=== PATIENT | female | born 1960 | race Caucasian/White ===

== ENCOUNTER 2019-02-13 20:02 | Inpatient (IN) | payer MEDICARE, OTHER ==
--- NOTE | 2019-02-13 20:14 | ED PDOC ---
Psych Transfer Clearance - Clearance Statement Clearance Statement: Vital signs, lab results and transfer papers reviewed on previous shift by Dr Zarco. Patient clinically stable for psychiatric admission.
[2019-02-13 20:15] VITALS: O2SAT 100
[2019-02-13] MEDS ORDERED: Magnesium Hydroxide Susp 30 ml UD PO PRN (21:54)
[2019-02-13] MEDS ORDERED: Alum-Mag Hydrox-Simethicone Susp (30 mL) PO PRN (21:54)
[2019-02-13] MEDS ORDERED: Bismuth Subsalicylate 262 mg/15 ml Sus (240 ml) PO PRN (21:54)
--- NOTE | 2019-02-13 22:40 | PCM.BM ---
<Danilo Bates - Last Filed: 02/13/19 22:38> Treatment Plan Problems - Problems identified on initial assessmt Command/Auditory Hallucinations Date Initiated: 02/13/19 Time Initiated: 22:38 Assessment reference: NA Status: Active Priority: 1 Depression Date Initiated: 02/13/19 Time Initiated: 22:39 Assessment reference: NA Priority: 2 Suicidal Ideation Date Initiated: 02/13/19 Time Initiated: 22:39 Assessment reference: NA Status: Active Priority: 3 Visual Hallucinations Date Initiated: 02/13/19 Time Initiated: 22:39 Assessment reference: NA Status: Active Priority: 4 Treatment assets and liabiliti Patient Assests: cooperative, ADL independent, good support system, negotiates basic needs, cognitively intact Patient Liabilities: medical problems, other (Hallucinations) - Milieu Protocol Maintain good personal hygiene: daily Encourage regular showers, daily Remind patient to perform daily oral care, daily Assist patient to perform ADL's Conduct patient checks and document Observation sheet: Q15 minutes Maintain personal safety: every shift Educate patient to report safety concerns to staff, every shift Monitor environment for contraband/sharps Medication safety: Monitor for expected outcome, potential side effects: every shift, Assess barriers to learning: every shift, Assess readiness for medication education: every shift <Marcella Tiwari - Last Filed: 02/14/19 10:23> - Diagnosis (1) Schizoaffective disorder Status: Acute Interventions: Medication management, Individual and group therapy, Psychoeducation 02/14/19 10:24 <Alberto Fernandez - Last Filed: 02/16/19 09:55> Family Contact Family involvement: Family/SO is involved Family contact: Patient declines to allow family contact at present Family contact name: Pt refused. - Goals for Treatment Patient goals for treatment: Pt denied goals for treatment at this time as she is denying all acute psych symptoms (i.e depression, anxiety, SI/HI and AVT hallucinations). Pt reported that she is "feeling good." Pt is discharged focused and is [facility] to [facility]. Discharge/Continuing Care - Education Needs Education Needs: Patient Medication, Patient Diagnosis/Disease Process, Patient Coping Skills, Patient Placement options, Patient Community resources, Patient Aftercare Safety Plan - Discharge Discharge Criteria: Tolerates medication w/o severe side effects, Free of Suicidal thoughts, Free of paranoid thoughts, Free of agitation, Normal sleep pattern, Ability to care for self, Reduction of target symptoms Discharge to:: Alf - Treatment Team Participation Patient/Family/SO Statement: 02/16/19 09:51 Pt seen in treatment team on 02/15/19. Pt denied SI/HI, AVT hallucinatins, depression, anxiety and delusions. Pt able to contract for safety and is able to verbalize future plans and goals for self. Pt's affect and mood is bright and cheerful and she is focused on discharge and returning to the [facility]. Pt is oriented X4. Discussed with Family/SO: No Was Patient/Family/SO present at Treatment Team Meeting: Yes
[2019-02-14 00:58] LABS: SQUAMOUS EPITHIAL 3 /hpf (0-5); URINE BILIRUBIN NEGATIVE (NEGATIVE); URINE BLOOD NEGATIVE (NEGATIVE); URINE CLARITY SLIGHTY-CLOUDY (Clear); URINE COLOR YELLOW (YELLOW); URINE GLUCOSE (UA) NEG (NEGATIVE); URINE LEUKOCYTE ESTERASE TRACE Leu/uL (Negative); URINE PROTEIN NEGATIVE (NEGATIVE); URINE UROBILINOGEN 0.2-1.0 mg/dL (0.2-1.0)
[2019-02-14] MEDS ORDERED: Levothyroxine 50 MCG TAB PO SCH (06:30)
[2019-02-14 06:33] VITALS: RESP 18
[2019-02-14 06:51] LABS: ALB/GLOB RATIO 1.1 (1.0-2.1); ALBUMIN 3.2 g/dL (3.5-5.0); ALT/SGPT 19 U/L (9-52); AST/SGOT 23 U/L (14-36); BLOOD UREA NITROGEN 21 mg/dl (7-17); CALCIUM 8.3 mg/dL (8.4-10.2); GFR NON-AFRICAN AMERICAN > 60; HDL CHOLESTEROL 41 MG/DL (30-70)
[2019-02-14 06:52] LABS: WHITE BLOOD COUNT 6.6 K/uL (4.8-10.8)
[2019-02-14 06:53] LABS: MEAN CELL VOLUME 93.6 fl (81.0-99.0); MEAN CORPUSCULAR HEMOGLOBIN 31.2 pg (27.0-31.0); MEAN CORPUSCULAR HGB CONC 33.3 g/dL (33.0-37.0); RBC 4.49 Mil/uL (3.80-5.20); RED CELL DISTRIBUTION WIDTH 13.8 % (11.5-14.5)
[2019-02-14 07:02] LABS: LDL CHOLESTEROL 62 mg/dL (0-129)
[2019-02-14 07:21] LABS: FERRITIN 59.9 ng/Ml (11.1-264.0)
[2019-02-14] MEDS ORDERED: E ESTRADIOL E ESTRAD PO SCH (09:00)
[2019-02-14] MEDS ORDERED: NORGEST PO SCH (09:00)
[2019-02-14] MEDS ORDERED: [UNRECOGNIZED DRUG - OTHER] PO SCH (09:00)
[2019-02-14] MEDS ORDERED: Patient's Own Med (Multivitamin [Daily Vite] 1 TAB) PO SCH (09:00)
[2019-02-14] MEDS: Cholecalciferol 1,000 INTLU TAB PO SCH (09:10)
[2019-02-14] MEDS: Multivitamin With Minerals Tab PO SCH (09:11)
[2019-02-14] MEDS: Pantoprazole 20 mg EC Tab PO SCH (09:11)
--- NOTE | 2019-02-14 10:30 | PCM.PSYCH ---
Initial Psychiatric Evaluation - Initial Psychiatric Evaluation Type of Admission: Voluntary Legal Status: Capacity Chief Complaint (in patient's own words): Suicidal ideation Patient's Reaction to Hospitalization: HPI: 58 yo female w/ h/o schizoaffective disorder, intellectual disability, presents w/ worsening depression, worsening CAH telling her to stab herself, jump out of a window or run away from her residential. She continues to have suicidal ideation and is not able to contract for safety at this time. She reports sleep disturbances. PMHx: GERD, HLD, Obesity, Asthma, Hypothyroidism, Seizure Disorder, Sleep Apnea, Vitamin D deficiency, Constipation, Allergic rhinitis, Diverticulosis, HTN PSurgHx: Hernia repair, cholecystecomy, gastric bypass, tendon repair, appendectomy, tonsillectomy and adenoidectomy, ankle surgery, bilateral knee replacements SHx: Resident at residential, no drugs/etoh/cig use Current Medications: Active Medications Generic Name Dose Route Start Last Admin Trade Name Freq PRN Reason Stop Dose Admin Acetaminophen 650 mg 02/13/19 21:54 Tylenol 325mg Tab PO Q4 PRN Pain, moderate (4-7) Al Hydrox/Mg Hydrox/Simethicone 30 ml 02/13/19 21:54 Maalox Plus 30 Ml PO Q4 PRN Dyspepsia Aspirin 81 mg 02/14/19 09:00 02/14/19 09:10 Aspirin Chewable PO 81 mg DAILY ELAINE Administration Cholecalciferol 2,000 intlu 02/14/19 09:00 02/14/19 09:10 Vitamin D PO 2,000 intlu DAILY ELAINE Administration Home Med 1 tab 02/14/19 09:00 L-Norgest/E.Estradiol-E.Estrad [Camrese 0.15-0.03-0.01 Mg Tab] PO DAILY ELAINE Levothyroxine Sodium 50 mcg 02/14/19 06:30 02/14/19 09:10 Synthroid PO 50 mcg DAILY@0630 ELAINE Administration Lorazepam 0.5 mg 02/13/19 21:54 02/13/19 22:13 Ativan PO 02/27/19 21:55 0.5 mg HS PRN Administration Insomnia Lorazepam 0.5 mg 02/13/19 21:54 Ativan PO 02/27/19 21:55 Q6 PRN Anixety/Agitation Magnesium Hydroxide 30 ml 02/13/19 21:54 Milk Of Magnesia PO HS PRN Constipation Montelukast Sodium 10 mg 02/14/19 09:00 02/14/19 09:10 Singulair PO 10 mg DAILY ELAINE Administration Multivitamins/Minerals 1 tab 02/14/19 09:00 02/14/19 09:11 Therapeutic-M Tab PO 1 tab DAILY ELAINE Administration Oxybutynin Chloride 10 mg 02/14/19 09:00 02/14/19 09:11 Ditropan Tab PO 10 mg DAILY ELAINE Administration Pantoprazole Sodium 20 mg 02/14/19 09:00 02/14/19 09:11 Protonix Ec Tab PO 20 mg DAILY ELAINE Administration Past Psychiatric History - Past Psychiatric History Pertinent Medical Hx (Current Medical&Sleep Prob, Allergies): Allergies Allergy/AdvReac Type Severity Reaction Status Date / Time amitriptyline Allergy RASH Verified 02/13/19 23:22 carbamazepine [From Tegretol] Allergy RASH Verified 02/13/19 23:22 cefaclor [From Ceclor] Allergy RASH Verified 02/13/19 23:22 cephalexin [From Keflex] Allergy RASH Verified 02/13/19 20:07 Cephalosporins Allergy RASH Verified 02/13/19 20:07 chlorpromazine Allergy RASH Verified 02/13/19 23:22 erythromycin base Allergy RASH Verified 02/13/19 23:22 [From Erythrocin] fenofibrate Allergy RASH Verified 02/13/19 20:07 fluoxetine [From Prozac] Allergy RASH Verified 02/13/19 23:22 imipramine Allergy RASH Verified 02/13/19 23:22 levetiracetam [From Keppra] Allergy RASH Verified 02/13/19 23:22 levofloxacin [From Levaquin] Allergy RASH Verified 02/13/19 23:22 Macrolide Antibiotics Allergy RASH Verified 02/13/19 20:07 maprotiline [From Ludiomil] Allergy RASH Verified 02/13/19 23:22 NSAIDS (Non-Steroidal Allergy RASH Verified 02/13/19 23:22 Anti-Inflamma omega-3 acid ethyl esters Allergy RASH Verified 02/13/19 23:22 perphenazine Allergy RASH Verified 02/13/19 23:22 Phenothiazines Allergy RASH Verified 02/13/19 20:07 phenytoin Allergy RASH Verified 02/13/19 23:22 prochlorperazine Allergy RASH Verified 02/13/19 23:22 quetiapine [From Seroquel] Allergy RASH Verified 02/13/19 23:22 Sulfa (Sulfonamide Allergy RASH Verified 02/13/19 20:07 Antibiotics) trazodone Allergy RASH Verified 02/13/19 23:22 trifluoperazine Allergy RASH Verified 02/13/19 23:22 Aspirin [Aspirin Chewable] 81 mg PO DAILY 02/13/19 Benztropine [Benztropine Mesylate] 1 mg PO DAILY 02/13/19 Calcium Carbonate/Vitamin D3 [Calcium 500-Vit D3 400 Tablet] DAILY 02/13/19 Cholecalciferol (Vitamin D3) [Vitamin D3] 2,000 unit PO DAILY 02/13/19 Clonazepam [Klonopin] 0.5 mg PO BID 02/13/19 Clonazepam [Klonopin] 1 mg PO DAILY 02/13/19 Divalproex [Depakote ER] 1,000 mg PO BID 02/13/19 Escitalopram [Lexapro] 20 mg PO DAILY 02/13/19 Levothyroxine [Synthroid] 50 mcg PO DAILY 02/13/19 Montelukast Sodium [Singulair] 10 mg PO DAILY 02/13/19 Multivitamin [Daily Bell] 1 tab PO DAILY 02/13/19 Nitrofurantoin Macrocrystal [Nitrofurantoin] 50 mg PO DAILY 02/13/19 Olanzapine [Olanzapine Odt] 10 mg PO BID 02/13/19 Oxybutynin Chloride [Oxybutynin Chloride ER] 10 mg PO DAILY 02/13/19 Pantoprazole Sodium [Protonix] 20 mg PO DAILY 02/13/19 Propylene Glycol/Peg 400/Pf [Systane 0.3-0.4% Eye Drop] 1 drop OU BID 02/13/19 Thiamine Mononitrate [Vitamin B-1] 100 mg PO HS 02/13/19 l-Norgest/E.estradiol-E.estrad [Camrese] 1 tab PO DAILY 02/13/19 traZODone [Desyrel] 150 mg PO HS 02/13/19 Review of Systems - Psychiatric Psychiatric: As Per HPI, Abnormal Sleep Pattern, Anhedonia, Anxiety, Auditory Hallucinations, Change in Appetite, Depression, Difficulty Concentrating, Hallucinations, Hopelessness, Irritability, Suicidal Ideation Mental Status Examination - Personal Presentation Personal Presentation: Looks older than stated age - Affect Affect: Constricted, Depressed - Motor Activity Motor Activity: Calm - Reliability in Providing Information Reliability in Providing Information: Fair - Speech Speech: Coherent - Mood Mood: Depressed, Anxious - Formal Thought Process Formal Thought Process: Hallucinations - Hallucinations/Delusions Hallucinations: Auditory - Obsessions/Compulsions Obsessions: No Compulsions: No - Cognitive Functions Orientation: Person, Place, Situation, Time Sensorium: Alert Estimate of Intelligence: Below average Judgement: Intact, as evidence by: Insight regarding need for hospitalization Memory: Recent intact, as evidence by: Ability to recall events of the day - Risk Risk: Suicidal, Diminished functioning - Strength & Assets Inventory Strength & Assets Inventory: Cooperative DSM 5 DX - DSM 5 DSM 5 Diagnosis: Schizoaffective Disorder; Intellectual Disability - Recommended/Plan of Treatment Treatment Recommendations and Plan of Treatment: Schizoaffective Disorder; Intellectual Disability -Admit to psychiatry unit -Medicine consult -1:1 for safety -Individual and group therapy -Psychoeducation -Continue Zyprexa -Increase Trazodone -Depakote for seizure disorder -Continue Klonopin -Continue Lexapro -Continue Cogentin -Disposition planning Projected ELOS: 5-10 days Discharge Plan and Discharge Criteria: Discharge when patient is psychiatrically stable - Smoking Cessation Smoking Cessation Initiated: No Reason for not providing: Not indicated
[2019-02-14] MEDS: Divalproex 500 mg DR(BID formulation) PO SCH ×2 (12:14→18:01)
[2019-02-14] MEDS: Calcium-Vit D 500 mg-200 Units Tab UD PO SCH (12:15)
[2019-02-14 12:19] LABS: FOLATE > 20.0 ng/mL
[2019-02-14] MEDS ORDERED: Divalproex 500 mg ER (ONCE DAILY formulation) PO SCH (13:00)
--- NOTE | 2019-02-14 14:05 | CP.PCM.CON ---
History of Present Illness - History of Present Illness History of Present Illness: Neurology Consultation Note: Consult requested by Dr. Tiwari Mrs. Rodriguez is a 58-year-old woman with a past medical history of GERD, HLD, Obesity, Asthma, Hypothyroidism, Seizure Disorder (on Depakote 1000 mg TID), Sleep Apnea, Vitamin D deficiency, Constipation, Allergic rhinitis, Diverticulosis, HTN, who is currently admitted for suicidal ideation. Neurology was consulted for adjustment of seizure medications as needed. Review of Systems - Review of Systems Systems not reviewed;Unavailable: Altered Mental Status Past Patient History - CARDIAC Hx Hypercholesterolemia: Yes Hx Hypertension: Yes - PULMONARY Hx Asthma: Yes - NEUROLOGICAL Hx Dizziness: Yes Hx Seizures: Yes - ENDOCRINE/METABOLIC Hx Hypothyroidism: Yes - MUSCULOSKELETAL/RHEUMATOLOGICAL Hx Arthritis: Yes Hx Falls: Yes - GASTROINTESTINAL Hx Bowel Surgery: Yes Hx Constipation: Yes Hx Diverticulitis: Yes Hx Gall Bladder Disease: Yes - PSYCHIATRIC Hx Anxiety: Yes Hx Depression: Yes Hx Schizophrenia: Yes Hx Substance Use: No - SURGICAL HISTORY Hx Surgeries: Yes Hx Appendectomy: Yes Hx Joint Replacement: Yes Hx Musculoskeletal Surgery: Yes Hx Tonsillectomy: Yes - ANESTHESIA Hx Anesthesia: Yes Meds Allergies/Adverse Reactions: Allergies Allergy/AdvReac Type Severity Reaction Status Date / Time amitriptyline Allergy RASH Verified 02/13/19 23:22 carbamazepine [From Tegretol] Allergy RASH Verified 02/13/19 23:22 cefaclor [From Ceclor] Allergy RASH Verified 02/13/19 23:22 cephalexin [From Keflex] Allergy RASH Verified 02/13/19 20:07 Cephalosporins Allergy RASH Verified 02/13/19 20:07 chlorpromazine Allergy RASH Verified 02/13/19 23:22 erythromycin base Allergy RASH Verified 02/13/19 23:22 [From Erythrocin] fenofibrate Allergy RASH Verified 02/13/19 20:07 fluoxetine [From Prozac] Allergy RASH Verified 02/13/19 23:22 imipramine Allergy RASH Verified 02/13/19 23:22 levetiracetam [From Keppra] Allergy RASH Verified 02/13/19 23:22 levofloxacin [From Levaquin] Allergy RASH Verified 02/13/19 23:22 Macrolide Antibiotics Allergy RASH Verified 02/13/19 20:07 maprotiline [From Ludiomil] Allergy RASH Verified 02/13/19 23:22 NSAIDS (Non-Steroidal Allergy RASH Verified 02/13/19 23:22 Anti-Inflamma omega-3 acid ethyl esters Allergy RASH Verified 02/13/19 23:22 perphenazine Allergy RASH Verified 02/13/19 23:22 Phenothiazines Allergy RASH Verified 02/13/19 20:07 phenytoin Allergy RASH Verified 02/13/19 23:22 prochlorperazine Allergy RASH Verified 02/13/19 23:22 quetiapine [From Seroquel] Allergy RASH Verified 02/13/19 23:22 Sulfa (Sulfonamide Allergy RASH Verified 02/13/19 20:07 Antibiotics) trazodone Allergy RASH Verified 02/13/19 23:22 trifluoperazine Allergy RASH Verified 02/13/19 23:22 - Medications Medications: Current Medications Acetaminophen (Tylenol 325mg Tab) 650 mg PO Q4 PRN PRN Reason: Pain, moderate (4-7) Al Hydrox/Mg Hydrox/Simethicone (Maalox Plus 30 Ml) 30 ml PO Q4 PRN PRN Reason: Dyspepsia Aspirin (Aspirin Chewable) 81 mg PO DAILY [facility] [place] Last Admin: 02/14/19 09:10 Dose: 81 mg Benztropine Mesylate (Cogentin) 1 mg PO HS [facility] [place] Calcium/Vitamin D (Oyster Shell Calcium/Vitamin D 500 Mg-200 Iu) 1 tab PO DAILY [facility] [place] Last Admin: 02/14/19 12:15 Dose: 1 tab Cholecalciferol (Vitamin D) 2,000 intlu PO DAILY [facility] [place] Last Admin: 02/14/19 09:10 Dose: 2,000 intlu Clonazepam (Klonopin) 0.5 mg PO BID [facility] [place] Last Admin: 02/14/19 12:13 Dose: 0.5 mg Clonazepam (Klonopin) 1 mg PO HS [facility] [place] Divalproex Sodium (Depakote Dr(*Bid*)) 1,000 mg PO BID [facility] [place] Last Admin: 02/14/19 12:14 Dose: 1,000 mg Escitalopram Oxalate (Lexapro) 20 mg PO DAILY [facility] [place] Last Admin: 02/14/19 12:14 Dose: 20 mg Home Med (L-Norgest/E.Estradiol-E.Estrad [Camrese 0.15-0.03-0.01 Mg Tab]) 1 tab PO DAILY [facility] [place] Levothyroxine Sodium (Synthroid) 50 mcg PO DAILY@0630 [facility] [place] Last Admin: 02/14/19 09:10 Dose: 50 mcg Lorazepam (Ativan) 0.5 mg PO HS PRN PRN Reason: Insomnia Stop: 02/27/19 21:55 Last Admin: 02/13/19 22:13 Dose: 0.5 mg Lorazepam (Ativan) 0.5 mg PO Q6 PRN PRN Reason: Anixety/Agitation Stop: 02/27/19 21:55 Magnesium Hydroxide (Milk Of Magnesia) 30 ml PO HS PRN PRN Reason: Constipation Montelukast Sodium (Singulair) 10 mg PO DAILY [facility] [place] Last Admin: 02/14/19 09:10 Dose: 10 mg Multivitamins/Minerals (Therapeutic-M Tab) 1 tab PO DAILY [facility] [place] Last Admin: 02/14/19 09:11 Dose: 1 tab Olanzapine (Zyprexa) 20 mg PO [facility] Oxybutynin Chloride (Ditropan Tab) 10 mg PO DAILY [facility] [place] Last Admin: 02/14/19 09:11 Dose: 10 mg Pantoprazole Sodium (Protonix Ec Tab) 20 mg PO DAILY [facility] [place] Last Admin: 02/14/19 09:11 Dose: 20 mg Thiamine HCl (Vitamin B1 Tab) 100 mg PO DAILY [facility] [place] Last Admin: 02/14/19 12:14 Dose: 100 mg Trazodone HCl (Desyrel) 200 mg PO [facility] Physical Exam - Constitutional Appears: Well - Head Exam Head Exam: ATRAUMATIC, NORMAL INSPECTION, NORMOCEPHALIC - Eye Exam Eye Exam: EOMI, Normal appearance, PERRL Pupil Exam: NORMAL ACCOMODATION, PERRL - ENT Exam ENT Exam: Mucous Membranes Moist, Normal Exam - Neck Exam Neck exam: Positive for: Normal Inspection - Respiratory Exam Respiratory Exam: Clear to Auscultation Bilateral, NORMAL BREATHING PATTERN - Cardiovascular Exam Cardiovascular Exam: REGULAR RHYTHM, +S1, +S2 - GI/Abdominal Exam GI & Abdominal Exam: Normal Bowel Sounds, Soft. absent: Tenderness - Extremities Exam Extremities exam: Positive for: normal inspection - Back Exam Back exam: NORMAL INSPECTION - Neurological Exam Neurological exam: Alert, CN II-XII Intact, Normal Gait, Oriented x3, Reflexes Normal Additional comments: no nystagmus, no ataxia noted, she complains of having diplopia - Psychiatric Exam Psychiatric exam: Depressed, Flat Affect - Skin Skin Exam: Dry, Intact, Normal Color, Warm Results - Vital Signs Recent Vital Signs: Last Vital Signs Temp 98.6 F 02/14/19 06:00 Pulse 80 02/14/19 06:00 Resp 18 02/14/19 06:00 BP 144/85 02/14/19 12:13 Pulse Ox 100 02/13/19 20:08 - Labs Result Diagrams: 02/14/19 05:50 02/14/19 05:50 Labs: Laboratory Results - last 24 hr 02/14/19 02/14/19 02/14/19 00:00 05:50 05:50 WBC 6.6 RBC 4.49 Hgb 14.0 Hct 42.0 MCV 93.6 MCH 31.2 H MCHC 33.3 RDW 13.8 Plt Count 88 L Sodium 130 L Potassium 4.3 Chloride 97 L Carbon Dioxide 24 Anion Gap 13 BUN 21 H Creatinine 0.8 Est GFR ( Amer) > 60 Est GFR (Non-Af Amer) > 60 Random Glucose 89 Hemoglobin A1c Calcium 8.3 L Iron TIBC % Saturation Ferritin 59.9 Total Bilirubin 0.5 AST 23 ALT 19 Alkaline Phosphatase 47 Total Protein 6.2 L Albumin 3.2 L Globulin 2.9 Albumin/Globulin Ratio 1.1 Triglycerides 119 Cholesterol 105 LDL Cholesterol Direct 62 HDL Cholesterol 41 25-OH Vitamin D Total Folate > 20.0 Free T4 Thyroxine (T4) 9.95 TSH 3rd Generation 8.15 H Urine Color Yellow Urine Clarity Slighty-cloudy Urine pH 6.0 Ur Specific [place] 1.008 Urine Protein Negative Urine Glucose (UA) Neg Urine Ketones Negative Urine Blood Negative Urine Nitrate Negative Urine Bilirubin Negative Urine Urobilinogen 0.2-1.0 Ur Leukocyte Esterase Trace Urine RBC (Auto) 1 Urine Microscopic WBC 1 Ur Squamous Epith Cells 3 02/14/19 02/14/19 02/14/19 05:50 05:50 05:50 WBC RBC Hgb Hct MCV MCH MCHC RDW Plt Count Sodium Potassium Chloride Carbon Dioxide Anion Gap BUN Creatinine Est GFR ( Amer) Est GFR (Non-Af Amer) Random Glucose Hemoglobin A1c 5.1 Calcium Iron 105 TIBC 381 % Saturation 28 Ferritin Total Bilirubin AST ALT Alkaline Phosphatase Total Protein Albumin Globulin Albumin/Globulin Ratio Triglycerides Cholesterol LDL Cholesterol Direct HDL Cholesterol 25-OH Vitamin D Total 92.5 Folate Free T4 1.00 Thyroxine (T4) TSH 3rd Generation Urine Color Urine Clarity Urine pH Ur Specific [place] Urine Protein Urine Glucose (UA) Urine Ketones Urine Blood Urine Nitrate Urine Bilirubin Urine Urobilinogen Ur Leukocyte Esterase Urine RBC (Auto) Urine Microscopic WBC Ur Squamous Epith Cells Assessment & Plan (1) Seizure disorder Assessment and Plan: Continue current inpatient dose of Depakote at 1000 mg BID and check levels tomorrow. Adjust dosage based on depakote serum levels. No further recommendations. Thank you. Status: Acute
--- NOTE | 2019-02-14 20:08 | CP.PCM.CON ---
History of Present Illness - History of Present Illness History of Present Illness: Internal Medicine consult note 58 yo female w/ h/o schizoaffective disorder, intellectual disability, pseudoseizures and hypothyroidism is admitted on Psych unit with worsening depression, IM is consulted due to elevated TSH. Patient reports alopecia but denies constipation, diarrhea, edema or hot/cold intolerance. She also has been c/o some dysuria and frequency, patient noted to have a Rx for macrobid on previous visit. Also patient reports hx of seizure, last episode 2 days ago, she denies hit her head, tongue bite, urine or bowel incontinence. PMHx: GERD, HLD, Obesity, Asthma, Hypothyroidism, Seizure Disorder, Sleep Apnea, Vitamin D deficiency, Constipation, Allergic rhinitis, Diverticulosis, HTN PSurgHx: Hernia repair, cholecystecomy, gastric bypass, tendon repair, appendectomy, tonsillectomy and adenoidectomy, ankle surgery, bilateral knee replacements. FMH: unknown Meds: reviewed, as bellow All: as above SHx: Resident at [facility], no drugs/etoh/cig use Review of Systems - Review of Systems All systems: reviewed and no additional remarkable complaints except (HPI) Past Patient History - CARDIAC Hx Hypercholesterolemia: Yes Hx Hypertension: Yes - PULMONARY Hx Asthma: Yes - NEUROLOGICAL Hx Dizziness: Yes Hx Seizures: Yes - ENDOCRINE/METABOLIC Hx Hypothyroidism: Yes - MUSCULOSKELETAL/RHEUMATOLOGICAL Hx Arthritis: Yes Hx Falls: Yes - GASTROINTESTINAL Hx Bowel Surgery: Yes Hx Constipation: Yes Hx Diverticulitis: Yes Hx Gall Bladder Disease: Yes - PSYCHIATRIC Hx Anxiety: Yes Hx Depression: Yes Hx Schizophrenia: Yes Hx Substance Use: No - SURGICAL HISTORY Hx Surgeries: Yes Hx Appendectomy: Yes Hx Joint Replacement: Yes Hx Musculoskeletal Surgery: Yes Hx Tonsillectomy: Yes - ANESTHESIA Hx Anesthesia: Yes Meds Allergies/Adverse Reactions: Allergies Allergy/AdvReac Type Severity Reaction Status Date / Time amitriptyline Allergy RASH Verified 02/13/19 23:22 carbamazepine [From Tegretol] Allergy RASH Verified 02/13/19 23:22 cefaclor [From Ceclor] Allergy RASH Verified 02/13/19 23:22 cephalexin [From Keflex] Allergy RASH Verified 02/13/19 20:07 Cephalosporins Allergy RASH Verified 02/13/19 20:07 chlorpromazine Allergy RASH Verified 02/13/19 23:22 erythromycin base Allergy RASH Verified 02/13/19 23:22 [From Erythrocin] fenofibrate Allergy RASH Verified 02/13/19 20:07 fluoxetine [From Prozac] Allergy RASH Verified 02/13/19 23:22 imipramine Allergy RASH Verified 02/13/19 23:22 levetiracetam [From Keppra] Allergy RASH Verified 02/13/19 23:22 levofloxacin [From Levaquin] Allergy RASH Verified 02/13/19 23:22 Macrolide Antibiotics Allergy RASH Verified 02/13/19 20:07 maprotiline [From Ludiomil] Allergy RASH Verified 02/13/19 23:22 NSAIDS (Non-Steroidal Allergy RASH Verified 02/13/19 23:22 Anti-Inflamma omega-3 acid ethyl esters Allergy RASH Verified 02/13/19 23:22 perphenazine Allergy RASH Verified 02/13/19 23:22 Phenothiazines Allergy RASH Verified 02/13/19 20:07 phenytoin Allergy RASH Verified 02/13/19 23:22 prochlorperazine Allergy RASH Verified 02/13/19 23:22 quetiapine [From Seroquel] Allergy RASH Verified 02/13/19 23:22 Sulfa (Sulfonamide Allergy RASH Verified 02/13/19 20:07 Antibiotics) trazodone Allergy RASH Verified 02/13/19 23:22 trifluoperazine Allergy RASH Verified 02/13/19 23:22 - Medications Medications: Current Medications Acetaminophen (Tylenol 325mg Tab) 650 mg PO Q4 PRN PRN Reason: Pain, moderate (4-7) Al Hydrox/Mg Hydrox/Simethicone (Maalox Plus 30 Ml) 30 ml PO Q4 PRN PRN Reason: Dyspepsia Aspirin (Aspirin Chewable) 81 mg PO DAILY [facility] Last Admin: 02/14/19 09:10 Dose: 81 mg Benztropine Mesylate (Cogentin) 1 mg PO [facility] Calcium/Vitamin D (Oyster Shell Calcium/Vitamin D 500 Mg-200 Iu) 1 tab PO DAILY [facility] Last Admin: 02/14/19 12:15 Dose: 1 tab Cholecalciferol (Vitamin D) 2,000 intlu PO DAILY [facility] Last Admin: 02/14/19 09:10 Dose: 2,000 intlu Clonazepam (Klonopin) 0.5 mg PO BID [facility] Last Admin: 02/14/19 18:00 Dose: 0.5 mg Clonazepam (Klonopin) 1 mg PO HS [facility] Divalproex Sodium (Depakote Dr(*Bid*)) 1,000 mg PO BID [facility] Last Admin: 02/14/19 18:01 Dose: 1,000 mg Escitalopram Oxalate (Lexapro) 20 mg PO DAILY [facility] Last Admin: 02/14/19 12:14 Dose: 20 mg Levothyroxine Sodium (Synthroid) 75 mcg PO DAILY@0630 [facility] Lorazepam (Ativan) 0.5 mg PO HS PRN PRN Reason: Insomnia Stop: 02/27/19 21:55 Last Admin: 02/13/19 22:13 Dose: 0.5 mg Lorazepam (Ativan) 0.5 mg PO Q6 PRN PRN Reason: Anixety/Agitation Stop: 02/27/19 21:55 Magnesium Hydroxide (Milk Of Magnesia) 30 ml PO HS PRN PRN Reason: Constipation Montelukast Sodium (Singulair) 10 mg PO DAILY [facility] Last Admin: 02/14/19 09:10 Dose: 10 mg Multivitamins/Minerals (Therapeutic-M Tab) 1 tab PO DAILY [facility] Last Admin: 02/14/19 09:11 Dose: 1 tab Olanzapine (Zyprexa) 20 mg PO [facility] Oxybutynin Chloride (Ditropan Tab) 10 mg PO DAILY [facility] Last Admin: 02/14/19 09:11 Dose: 10 mg Pantoprazole Sodium (Protonix Ec Tab) 20 mg PO DAILY [facility] Last Admin: 02/14/19 09:11 Dose: 20 mg Thiamine HCl (Vitamin B1 Tab) 100 mg PO DAILY [facility] Last Admin: 02/14/19 12:14 Dose: 100 mg Trazodone HCl (Desyrel) 200 mg PO [facility] Physical Exam - Constitutional Appears: No Acute Distress - Head Exam Head Exam: NORMAL INSPECTION - Eye Exam Eye Exam: EOMI, PERRL. absent: Nystagmus - Respiratory Exam Respiratory Exam: Clear to Auscultation Bilateral, NORMAL BREATHING PATTERN. absent: Rales, Wheezes - Cardiovascular Exam Cardiovascular Exam: REGULAR RHYTHM, +S1, +S2. absent: Tachycardia - GI/Abdominal Exam GI & Abdominal Exam: Normal Bowel Sounds, Soft. absent: Distended, Tenderness - Extremities Exam Extremities exam: Negative for: calf tenderness, pedal edema - Back Exam Back exam: NORMAL INSPECTION. absent: CVA tenderness (L), CVA tenderness (R) - Neurological Exam Neurological exam: Alert, Normal Gait, Oriented x3 - Skin Skin Exam: Dry, Warm Results - Vital Signs Recent Vital Signs: Last Vital Signs Temp 98.6 F 02/14/19 16:27 Pulse 73 02/14/19 16:27 Resp 18 02/14/19 16:27 BP 116/80 02/14/19 16:27 Pulse Ox 100 02/13/19 20:08 - Labs Result Diagrams: 02/14/19 05:50 02/14/19 05:50 Labs: Laboratory Results - last 24 hr 02/14/19 02/14/19 02/14/19 00:00 05:50 05:50 WBC 6.6 RBC 4.49 Hgb 14.0 Hct 42.0 MCV 93.6 MCH 31.2 H MCHC 33.3 RDW 13.8 Plt Count 88 L Sodium 130 L Potassium 4.3 Chloride 97 L Carbon Dioxide 24 Anion Gap 13 BUN 21 H Creatinine 0.8 Est GFR ( Amer) > 60 Est GFR (Non-Af Amer) > 60 Random Glucose 89 Hemoglobin A1c Calcium 8.3 L Iron TIBC % Saturation Ferritin 59.9 Total Bilirubin 0.5 AST 23 ALT 19 Alkaline Phosphatase 47 Total Protein 6.2 L Albumin 3.2 L Globulin 2.9 Albumin/Globulin Ratio 1.1 Triglycerides 119 Cholesterol 105 LDL Cholesterol Direct 62 HDL Cholesterol 41 Vitamin B12 25-OH Vitamin D Total Folate > 20.0 Free T4 Thyroxine (T4) 9.95 TSH 3rd Generation 8.15 H Urine Color Yellow Urine Clarity Slighty-cloudy Urine pH 6.0 Ur Specific [place] 1.008 Urine Protein Negative Urine Glucose (UA) Neg Urine Ketones Negative Urine Blood Negative Urine Nitrate Negative Urine Bilirubin Negative Urine Urobilinogen 0.2-1.0 Ur Leukocyte Esterase Trace Urine RBC (Auto) 1 Urine Microscopic WBC 1 Ur Squamous Epith Cells 3 Valproic Acid RPR 02/14/19 02/14/19 02/14/19 05:50 05:50 05:50 WBC RBC Hgb Hct MCV MCH MCHC RDW Plt Count Sodium Potassium Chloride Carbon Dioxide Anion Gap BUN Creatinine Est GFR ( Amer) Est GFR (Non-Af Amer) Random Glucose Hemoglobin A1c 5.1 Calcium Iron TIBC % Saturation Ferritin Total Bilirubin AST ALT Alkaline Phosphatase Total Protein Albumin Globulin Albumin/Globulin Ratio Triglycerides Cholesterol LDL Cholesterol Direct HDL Cholesterol Vitamin B12 25-OH Vitamin D Total Folate Free T4 1.00 Thyroxine (T4) TSH 3rd Generation Urine Color Urine Clarity Urine pH Ur Specific [place] Urine Protein Urine Glucose (UA) Urine Ketones Urine Blood Urine Nitrate Urine Bilirubin Urine Urobilinogen Ur Leukocyte Esterase Urine RBC (Auto) Urine Microscopic WBC Ur Squamous Epith Cells Valproic Acid RPR Nonreactive 02/14/19 02/14/19 02/14/19 05:50 15:00 15:00 WBC RBC Hgb Hct MCV MCH MCHC RDW Plt Count Sodium Potassium Chloride Carbon Dioxide Anion Gap BUN Creatinine Est GFR ( Amer) Est GFR (Non-Af Amer) Random Glucose Hemoglobin A1c Calcium Iron 105 TIBC 381 % Saturation 28 Ferritin Total Bilirubin AST ALT Alkaline Phosphatase Total Protein Albumin Globulin Albumin/Globulin Ratio Triglycerides Cholesterol LDL Cholesterol Direct HDL Cholesterol Vitamin B12 656 25-OH Vitamin D Total 92.5 Folate Free T4 Thyroxine (T4) TSH 3rd Generation Urine Color Urine Clarity Urine pH Ur Specific [place] Urine Protein Urine Glucose (UA) Urine Ketones Urine Blood Urine Nitrate Urine Bilirubin Urine Urobilinogen Ur Leukocyte Esterase Urine RBC (Auto) Urine Microscopic WBC Ur Squamous Epith Cells Valproic Acid 73.3 RPR Assessment & Plan - Assessment and Plan (Free Text) Assessment: 58 yo female w/ h/o schizoaffective disorder, intellectual disability, pseudoseizures and hypothyroidism is admitted on Psych unit with worsening depression with elevtaed TSH and UTI. Plan: Hypothyroidism - uncontrolled, symptomatic - TSH 8.15 - Levothyroxine increased from 50mcg to 75 mcg daily - repeat TSH in 6 weeks UTI - UA with trace esterase - Continue macrobid BID for 5 days - f/u cultures Seizure disorder - On depakote - Neurology consulted: recs continue dose of Depakote 1000 mg BID and check levels in am - on ativan PRN Depression - Management as per Psych Case discussed with Dr Jack
[2019-02-15] MEDS: Levothyroxine 75 MCG TAB PO SCH (06:05)
[2019-02-15 06:32] LABS: ALBUMIN 2.7 g/dL (3.5-5.0); ALT/SGPT 22 U/L (9-52); AST/SGOT 24 U/L (14-36); BLOOD UREA NITROGEN 22 mg/dl (7-17); CALCIUM 8.3 mg/dL (8.4-10.2); GFR NON-AFRICAN AMERICAN > 60
[2019-02-15] MEDS: Divalproex 500 mg DR(BID formulation) PO SCH ×3 (09:14→17:19)
[2019-02-15] MEDS: Multivitamin With Minerals Tab PO SCH (09:17)
[2019-02-15] MEDS: Pantoprazole 20 mg EC Tab PO SCH (09:18)
[2019-02-15] MEDS: Calcium-Vit D 500 mg-200 Units Tab UD PO SCH (09:19)
[2019-02-15] MEDS: Cholecalciferol 1,000 INTLU TAB PO SCH (09:21)
--- NOTE | 2019-02-15 10:50 | PCM.PYCHPN ---
Psychiatric Progress Note - Psychiatric Progress Note Patient seen today, length of contact: Pt evaluated, case discussed w/ team, chart reviewed Patient Chief Complaint: "I'm okay." Problems Identified/Issues Discussed: Patient reports that her mood is improving. She is able to contract for safety and the 1:1 was discontinued. As per history and clinical observation, patient seems to have mood fluctuations and may make comments to seek attention from others. She reports that the AH have become less frequent and denies acute AH to screenplay writer. No adverse effects to medications reported. Medication Change: No Medical Record Reviewed: Yes Consults ordered or reviewed: Medicine consult, Neurology consult Mental Status Examination - Cognitive Function Orientation: Person, Place, Situation, Time Memory: Impaired Decription of patient's judgement and insights: Limited I/J - Mood Mood: Anxious - Affect Affect: Broad - Formal Thought Process Formal Thought Process: Hallucinations Psychotic Thoughts and Behaviors: Reports recent AH, but denies acute AH - Suicidal Ideation Suicidal Ideation: No - Homicidal Ideation Homicidal Ideation: No Goal/Treatment Plan - Goal/Treatment Plan Need for Continued Stay: Severe depression anxiety, Discharge may exacerbated symptoms Progress Toward Problem(s) and Goals/Treatment Plan: Schizoaffective Disorder; Intellectual Disability -Medicine consult -Neurology consult -Discontinue 1:1 -Individual and group therapy -Psychoeducation -Continue Zyprexa -Continue Trazodone -Depakote for seizure disorder -Continue Klonopin -Continue Lexapro -Continue Cogentin -Disposition planning Estimated Date of D/C: 02/17/19
--- NOTE | 2019-02-15 11:01 | CP.PCM.PCO ---
Physician Communication Note - Physician Communication Note Physician Communication Note: Change in Depakote Dose
[2019-02-16] MEDS: Levothyroxine 75 MCG TAB PO SCH (06:17)
[2019-02-16] MEDS: Divalproex 500 mg DR(BID formulation) PO SCH ×3 (08:18→17:15)
[2019-02-16] MEDS: Multivitamin With Minerals Tab PO SCH (08:18)
[2019-02-16] MEDS: Cholecalciferol 1,000 INTLU TAB PO SCH (08:20)
[2019-02-16] MEDS: Pantoprazole 20 mg EC Tab PO SCH (08:22)
[2019-02-16] MEDS: Calcium-Vit D 500 mg-200 Units Tab UD PO SCH (08:22)
--- NOTE | 2019-02-16 09:19 | PCM.PYCHPN ---
Psychiatric Progress Note - Psychiatric Progress Note Patient seen today, length of contact: Pt evaluated, case discussed w/ team, chart reviewed Patient Chief Complaint: "I want to leave." Problems Identified/Issues Discussed: Patient is requesting to leave the hospital today. She denies acute AH/VH/SI/HI. She is calm, cooperative, with full range of affect, no behavioral issues or self injurious statements. Patient admitted that she makes comments or exaggerates symptoms at times to seek attention from staff or to be admitted to the hospital. No adverse effects to medications reported. Medication Change: No Medical Record Reviewed: Yes Consults ordered or reviewed: Medicine consult, Neurology consult Mental Status Examination - Cognitive Function Orientation: Person, Place, Situation, Time Decription of patient's judgement and insights: Improving I/J; chronic limitations in I/J due to intellectual disability - Mood Mood: Neutral - Affect Affect: Broad - Speech Speech: Appropriate - Formal Thought Process Formal Thought Process: No Impairment Psychotic Thoughts and Behaviors: NO AH/VH/paranoia/delusions - Suicidal Ideation Suicidal Ideation: No - Homicidal Ideation Homicidal Ideation: No Goal/Treatment Plan - Goal/Treatment Plan Progress Toward Problem(s) and Goals/Treatment Plan: Schizoaffective Disorder; Intellectual Disability -Patient is requesting to leave the hospital; she denies acute psychiatric complaints and has not had any behavioral issues; will observe for clinical safety overnight with possible discharge tomorrow -Medicine consult -Neurology consult -Individual and group therapy -Psychoeducation -Continue Zyprexa -Continue Trazodone -Depakote for seizure disorder -Continue Klonopin -Continue Lexapro -Continue Cogentin -Disposition planning Estimated Date of D/C: 02/17/19
[2019-02-17 06:24] VITALS: BP 111/69; PULSE 77; TEMP 98.1
[2019-02-17] MEDS: Levothyroxine 75 MCG TAB PO SCH (06:49)
[2019-02-17] MEDS: Multivitamin With Minerals Tab PO SCH (08:19)
[2019-02-17] MEDS: Calcium-Vit D 500 mg-200 Units Tab UD PO SCH (08:20)
[2019-02-17] MEDS: Divalproex 500 mg DR(BID formulation) PO SCH ×2 (08:20→12:32)
[2019-02-17] MEDS: Pantoprazole 20 mg EC Tab PO SCH (08:20)
[2019-02-17] MEDS: Cholecalciferol 1,000 INTLU TAB PO SCH (08:21)
--- NOTE | 2019-02-17 11:30 | PCM.PYCHDC ---
Mental Status Examination - Mental Status Examination Orientation: Person, Place, Situation, Time Mood: Neutral Affect: Broad Speech: Appropriate Formal Thought Process: No Impairment Description of patient's judgement and insight: Chronic limitations in I/J due to intellectual disability Psychotic Thoughts and Behaviors: NO AH/VH/paranoia/delusions Suicidal Ideation: No Current Homicidal Ideation?: No Discharge Summary - Discharge Note Reason for Hospitalization: HPI: 58 yo female w/ h/o schizoaffective disorder, intellectual disability, presents w/ worsening depression, worsening CAH telling her to stab herself, jump out of a window or [facility] away from [facility]. She continues to have suicidal ideation and is not able to contract for safety at this time. She reports sleep disturbances. PMHx: GERD, HLD, Obesity, Asthma, Hypothyroidism, Seizure Disorder, Sleep Apnea, Vitamin D deficiency, Constipation, Allergic rhinitis, Diverticulosis, HTN PSurgHx: Hernia repair, cholecystecomy, gastric bypass, tendon repair, appendectomy, tonsillectomy and adenoidectomy, ankle surgery, bilateral knee replacements SHx: [facility], no drugs/etoh/cig use Consultations:: List each consultation separately and include: 1. Reason for request. 2. Findings. 3. Follow-up Consultations: Medicine consult, Neurology consult Summary of Hospital Course include:: 1. Description of specific treatment plan utilized for patients during their course of treatmen. 2. Summarize the time- course for resolution of acute symptoms and/or regressed behaviors. 3. Describe issues identified and worked on during hospitalization. 4. Describe medication utilized. 5. Describe medical problems identified and treated. 6. Reassessment of suicide risk Summary of Hospital Course: Patient was admitted to the psychiatry unit. Individual and group therapy were provided. Patient was continued on Cogentin 1 mg PO HS, Klonopin 0.5 mg PO BID/1 mg PO HS, Depakote 1000 mg PO TID (for seizure disorder), Lexapro 20 mg PO Daily and Zyprexa 20 mg PO HS as was prescribed by her regular psychiatrist. The following medications were modified: Synthryoid was increased to 75 mcg QAM Trazodone was increased to 200 mg PO HS Macrobid 100 mg PO Q12 HR was given for acute UTI - Diagnosis (1) Schizoaffective disorder Current Visit: Yes Status: Acute - Final Diagnosis (DSM 5) Condition upon Discharge: STABLE DSM 5: Schizoaffective Disorder Disposition: HOME/ ROUTINE Follow-up Treatment Plan: Schizoaffective Disorder; Intellectual Disability Patient was continued on Cogentin 1 mg PO HS, Klonopin 0.5 mg PO BID/1 mg PO HS, Depakote 1000 mg PO TID (for seizure disorder), Lexapro 20 mg PO Daily and Zyprexa 20 mg PO HS as was prescribed by her regular psychiatrist. The following medications were modified: Synthryoid was increased to 75 mcg QAM Trazodone was increased to 200 mg PO HS Macrobid 100 mg PO Q12 HR was given for acute UTI Prescriptions/Medication Reconciliation: Levothyroxine [Synthroid] 75 mcg PO DAILY@0630 #30 tab Nitrofurantoin Macrocrystals [Macrobid] 100 mg PO Q12 #9 cap traZODone [Desyrel] 200 mg PO HS #60 tab - Smoking Cessation Smoking Cessation Medication prescribed: No Reason for not providing: Not indicated - Antipsychotic Medications Pt discharged on 2 or more routine antipsychotic medications: No
== END 2019-02-17 14:09 | disposition home or self-care (01) | DRG 885 ==
LOC: H.ER 20:02 → H.STEP 20:10
PROVIDERS: ADMIT Psychiatry & Neurology Psychiatry; ATTEND Psychiatry & Neurology Psychiatry
PROC: GZHZZZZ Group Psychotherapy (ICD-10-PCS; principal; 2019-02-13)
PROC: GZ58ZZZ Individual Psychotherapy, Cognitive-Behavioral (ICD-10-PCS; 2019-02-13)
DX: F25.9 Schizoaffective disorder, unspecified (principal); R45.851 Suicidal ideations; N39.0 Urinary tract infection, site not specified; F79 Unspecified intellectual disabilities; G40.909 Epilepsy, unspecified, not intractable, without status epilepticus; F41.9 Anxiety disorder, unspecified; K21.9 Gastro-esophageal reflux disease without esophagitis; I10 Essential (primary) hypertension; E03.9 Hypothyroidism, unspecified; E78.5 Hyperlipidemia, unspecified; E78.00 Pure hypercholesterolemia, unspecified; J45.909 Unspecified asthma, uncomplicated; G47.30 Sleep apnea, unspecified; E66.9 Obesity, unspecified; E55.9 Vitamin D deficiency, unspecified; Z96.653 Presence of artificial knee joint, bilateral; Z98.84 Bariatric surgery status